=== PATIENT | male | born 1990 | race American Indian/Alaskan Native ===

== ENCOUNTER 2023-11-05 09:21 | Emergency (ER) | payer SELFPAY ==
[2023-11-05] MEDS: Sodium Chloride 0.9% 10 ML Syringe FLUSH PRN (09:50)
[2023-11-05] MEDS: Aspirin 81 MG Tab.Chew PO ONE (09:52)
[2023-11-05 10:06] LABS: BASOPHILS PERCENT AUTO 0.3 % (0.0-1.0); EOSINOPHILS ABSOLUTE AUTO 0.1 K/mm3 (0.0-0.4); EOSINOPHILS PERCENT AUTO 1.4 % (0.0-6.0); HEMATOCRIT 42.9 % (42.0-52.0); IMMATURE GRAN ABSOLUTE AUTO 0.01 K/mm3 (0.00-0.05); IMMATURE GRAN PERCENT AUTO 0.2 % (0.0-0.4); LYMPHOCYTES ABSOLUTE AUTO 3.9 K/mm3 (1.0-4.8); LYMPHOCYTES PERCENT AUTO 59.4 % (24.0-44.0); MEAN CORPUSCULAR HEMOGLOBIN 25.8 pg (28.0-32.0); MEAN CORPUSCULAR HGB CONC 32.6 g/dl (32.0-36.0); MEAN PLATELET VOLUME 10.5 fl (9.4-12.4); MONOCYTES ABSOLUTE AUTO 0.4 K/mm3 (0.0-0.8); MONOCYTES PERCENT AUTO 6.2 % (0.0-8.0); NEUTROPHILS ABSOLUTE AUTO 2.1 K/mm3 (1.8-7.7); NEUTROPHILS PERCENT AUTO 32.5 % (41.0-71.0); PLATELET COUNT,PLT 239 K/mm3 (150-400); RED BLOOD CELL COUNT 5.43 M/mm3 (4.52-5.90); WHITE BLOOD CELL COUNT,WBC 6.58 K/mm3 (3.9-11.3)
[2023-11-05 10:26] LABS: A/G RATIO 0.7 (1-2); ALBUMIN 3.4 g/dl (3.4-5.0); ANION GAP 12.4 (5-15); BILIRUBIN TOTAL 0.2 mg/dL (0.2-1.0); BUN/CREATININE RATIO 18.9 (14-18); CALCIUM 8.2 mg/dL (8.5-10.1); CREATININE 0.9 mg/dL (0.7-1.3); EST CRCL DRUG DOSING (CG) 108.13 mL/min; POTASSIUM,K 4.4 mEq/L (3.5-5.1); PROTEIN TOTAL,TP 8.1 g/dl (6.4-8.2)
[2023-11-05 10:43] LABS: CORONAVIRUS COVID-19 NAA NEGATIVE (NEGATIVE); INFLUENZA A NAA NEGATIVE (NEGATIVE); RESPIRATORY SYNCYTIAL VIR NAA NEGATIVE (NEGATIVE)
== END 2023-11-05 11:12 | disposition home or self-care (01) ==
LOC: JD.ED 09:21
DX: R07.89 Other chest pain (principal); Z86.16 Personal history of COVID-19
CPT/HCPCS: 0241U; 36415; 71046; 80053; 84484; 85025; 85379; 93005; 99285; A9270; J3490